=== PATIENT | male | born 1990 | race Hispanic/Latino ===

== ENCOUNTER 2023-08-12 09:08 | Observation (INO) | payer SELFPAY ==
[2023-08-12 10:01] LABS: #Basophils 0.06 10x3/uL (0.0-0.2); %Basophils 0.8 % (0.0-1.0); %Eosinophils 1.2 % (0.0-10.0); %Lymphocytes 24.2 % (21.0-51.0); %Monocytes 6.7 % (0.0-10.0); %Neutrophils 66.6 % (42.0-75.0); Hematocrit 51.6 % (42.0-52.0); Hemoglobin 16.8 g/dL (14.0-18.0); Mean Corpuscular HGB CONC 32.6 g/dL (32.0-36.0); Mean Corpuscular Hemoglobin 27.1 pg (27.0-31.0); Mean Corpuscular Volume 83.1 fL (78.0-98.0); Mean Platelet Volume 9.6 fL (7.4-10.4); Platelet Count 272 10x3/uL (130-400); RBC Distribution Width 12.7 % (11.5-14.5); Red Blood Cell (RBC) Count 6.21 mill/uL (4.70-6.10)
[2023-08-12 10:21] LABS: ALT (SGPT) 15 U/L (8-55); AST (SGOT) 12 U/L (5-34); Albumin 4.3 g/dL (3.5-5.0); Alkaline Phosphatase 70 U/L (40-110); Anion Gap 26 mmol/L (10-20); BUN (Urea Nitrogen) 23 mg/dL (8.9-20.6); Bilirubin, Total 0.9 mg/dL (0.2-1.2); Calc. Creatinine Clearance 0 mL/min (70-130); Calcium 10.3 mg/dL (7.8-10.44); Carbon Dioxide 16 mmol/L (22-29); Chloride 108 mmol/L (98-107); Estimated GFR 68; Globulin 2.8 g/dL (2.4-3.5); Glucose 94 mg/dL (70-105); Potassium 4.5 mmol/L (3.5-5.1); Protein, Total 7.1 g/dL (6.0-8.3); Sodium 145 mmol/L (136-145)
[2023-08-12 10:22] LABS: Acetaminophen Less than 10 mcg/mL (10.0-30.0); Alcohol Less than 10.0 mg/dL (Less than 10); CK (CPK) 39 U/L (30-200); Salicylate Less than 8.0 mg/dL (15.0-30.0)
[2023-08-12] MEDS ORDERED: Lorazepam 1 MG TAB ONE (12:41)
[2023-08-12] MEDS ORDERED: LORazepam 2 MG/ML SYR.(CARPUJECT) ONE (12:43)
[2023-08-12 15:16] LABS: Lipase 12 U/L (8-78); Magnesium 1.4 mg/dL (1.6-2.6)
[2023-08-12 15:19] LABS: Troponin I 0.015 ng/mL (< 0.028)
[2023-08-12] MEDS ORDERED: Magnesium 2 GM/50 ML BAG (IN WATER) ONE (16:19)
[2023-08-12 16:51] LABS: Anion Gap 19 mmol/L (10-20); BUN (Urea Nitrogen) 19 mg/dL (8.9-20.6); Calc. Creatinine Clearance 0 mL/min (70-130); Calcium 9.1 mg/dL (7.8-10.44); Carbon Dioxide 16 mmol/L (22-29); Chloride 110 mmol/L (98-107); Estimated GFR 95; Glucose 93 mg/dL (70-105); Potassium 4.2 mmol/L (3.5-5.1); Sodium 141 mmol/L (136-145)
[2023-08-12 16:53] LABS: Amphetamine Not Detected (NotDetected); Barbiturates Screen Not Detected (NotDetected); Benzodiazepine Screen Not Detected (NotDetected); Cocaine Metabolite Screen Not Detected (NotDetected); Methadone Not Detected (NotDetected); Methamphetamine Not Detected (NotDetected); Opiate Screen Not Detected (NotDetected); Oxycodone Screen Not Detected (NotDetected); Phencyclidine (PCP) Not Detected (NotDetected); THC/Cannabinoid Screen Not Detected (NotDetected); Tricyclic Screen Not Detected (NotDetected)
[2023-08-12 16:57] LABS: Bacteria/HPF None Seen HPF (None Seen); Bilirubin Negative (Negative); Blood, Urine Negative (Negative); CAUTI Indications for Culture Pelvic or flank pain; Clarity Clear (Clear); Glucose, Urine (Dipstick) Normal (Negative); Ketone, Urine Greater than 150 mg/dL (Negative); Leukocyte Negative Leu/uL (Negative); Nitrite Negative (Negative); Protein, Urine (Dipstick) 30 mg/dL (Neg-Trace); Specific Gravity, Urine 1.027 (1.002-1.036); Squamous Epithelial 0-3 HPF (0-3); Urobilinogen Normal mg/dL (Less than 2); WBC/HPF 0-3 HPF (0-3); pH, Urine 5.5 (5.0-9.0)
[2023-08-12] MEDS ORDERED: Ibuprofen 100 MG/5 ML UDCUP ONE (17:00)
[2023-08-12 17:02] LABS: Urine Culture Reflex No No
[2023-08-12] MEDS ORDERED: Acetaminophen 650 MG Suppository PR PRN (19:18)
[2023-08-12] MEDS ORDERED: Senokot S 8.6-50 MG TAB PO PRN (19:18)
[2023-08-12] MEDS ORDERED: Calcium Carbonate 500 MG ChewTAB PO PRN (19:18)
[2023-08-12] MEDS ORDERED: Ondansetron PF 4 MG/2 ML Vial IVP PRN (19:18)
[2023-08-12] MEDS ORDERED: Ondansetron ODT 4 MG TAB PO PRN (19:18)
[2023-08-12] MEDS ORDERED: HumaLOG 300 UNITS/3 ML VIAL SC PRN ×2 (19:29)
[2023-08-12] MEDS ORDERED: Dextrose 50% Abboject 50 ML SYRINGE SLOW IVP PRN (19:29)
[2023-08-12] MEDS ORDERED: Glucagon 1 MG/ML KIT IM PRN (19:29)
[2023-08-12] MEDS ORDERED: Dextrose 5% in Water 1,000 ML IV PRN (19:29)
[2023-08-12] MEDS ORDERED: Electrolyte Replacement Protocol 1 EACH FS SCH (19:30)
[2023-08-12] MEDS: Lactated Ringer's 1,000 ML IV SCH (20:51)
[2023-08-12] MEDS: Famotidine/PF 20 mg/2ml Vial SLOW IVP SCH (20:51)
[2023-08-12 21:18] VITALS: BMI 34.7
[2023-08-13 04:54] LABS: #Basophils 0.07 10x3/uL (0.0-0.2); %Basophils 1.2 % (0.0-1.0); %Eosinophils 2.9 % (0.0-10.0); %Lymphocytes 31.6 % (21.0-51.0); %Neutrophils 54.8 % (42.0-75.0); Hematocrit 39.5 % (42.0-52.0); Hemoglobin 13.4 g/dL (14.0-18.0); Mean Corpuscular HGB CONC 33.9 g/dL (32.0-36.0); Mean Corpuscular Hemoglobin 27.5 pg (27.0-31.0); Mean Corpuscular Volume 81.1 fL (78.0-98.0); Mean Platelet Volume 9.3 fL (7.4-10.4); Platelet Count 195 10x3/uL (130-400); RBC Distribution Width 12.5 % (11.5-14.5); Red Blood Cell (RBC) Count 4.87 mill/uL (4.70-6.10)
[2023-08-13 05:33] LABS: Anion Gap 9 mmol/L (10-20); BUN (Urea Nitrogen) 11 mg/dL (8.9-20.6); Calc. Creatinine Clearance 174 mL/min (70-130); Calcium 8.7 mg/dL (7.8-10.44); Carbon Dioxide 23 mmol/L (22-29); Chloride 111 mmol/L (98-107); Estimated GFR 115; Glucose 104 mg/dL (70-105); Magnesium 1.6 mg/dL (1.6-2.6); Potassium 3.6 mmol/L (3.5-5.1); Sodium 139 mmol/L (136-145)
[2023-08-13] MEDS: Magnesium 2 GM/50 ML(in water) 2 GM in Premix 1 BAG IVPB SCH (10:00)
[2023-08-13] MEDS: Enoxaparin 40 MG (0.4 mL) SYRINGE SC SCH (10:01)
[2023-08-13] MEDS: Lactated Ringer's 1,000 ML IV SCH (10:02)
[2023-08-13 13:41] VITALS: BMI 34.9
[2023-08-13] MEDS: Ibuprofen 600 MG TAB PO PRN (17:21)
[2023-08-14] MEDS: Acetaminophen 325 MG TAB PO PRN (15:34)
[2023-08-14 16:05] VITALS: BP 117/81; TEMP 98.6
== END 2023-08-14 18:51 | disposition short-term general hospital (02) ==
LOC: ERS 09:08 → EDBD 09:08 → 2NO 18:51
PROVIDERS: ADMIT Family Medicine; ATTEND Internal Medicine
DX: R45.851 Suicidal ideations (principal); E86.0 Dehydration; N17.9 Acute kidney failure, unspecified; E11.9 Type 2 diabetes mellitus without complications; E87.20 Acidosis, unspecified; G93.41 Metabolic encephalopathy; F39 Unspecified mood [affective] disorder; F41.9 Anxiety disorder, unspecified; F32.A Depression, unspecified; F20.9 Schizophrenia, unspecified; Z90.49 Acquired absence of other specified parts of digestive tract; Z87.891 Personal history of nicotine dependence
CPT/HCPCS: 36415; 36416; 71045; 72100; 80048; 80053; 80306; 80307; 81001; 82550; 83605; 83690; 83735; 84443; 84484; 85025; 85379; 93005; 96365; 96366; 96372; 96375; 96376; G0378; J1650; J2060; J3475; J7120; S0028